=== PATIENT | male | born 1980 | race Caucasian/White ===

== ENCOUNTER 2019-07-20 11:29 | Emergency (ER) | payer OTHER, SELFPAY ==
[2019-07-20 11:36] VITALS: BP 154/107; PULSE 85; RESP 14; TEMP 36.9; O2SAT 99
--- NOTE | 2019-07-20 11:44 | ED.GENADULT ---
HPI - General Adult General Chief complaint: Upper Respiratory Infection Stated complaint: sinus Time Seen by Provider: 07/20/19 11:44 Source: patient Mode of arrival: ambulatory Limitations: no limitations History of Present Illness HPI narrative: 39-year-old male patient presents to the [facility] with complaints of cold symptoms for the past 4 to 5 days. Patient states he has had a cough and has been coughing up some brown sputum in the morning recently. Patient states he is an active smoker. Patient denies getting a flu shot this year. Patient denies any fevers but states he has had a little bit of a stuffy nose recently. Denies sore throat, chest pain, shortness of breath, abdominal pain, nausea, vomiting or diarrhea. Patient states he has been taking DayQuil and NyQuil for his symptoms. Related Data Home Medications Medication Instructions Recorded Confirmed omega 1-ddv-mln-fish oil [Fish Oil] 2 cap PO DAILY 07/20/19 07/20/19 omeprazole 20 mg PO DAILY 07/20/19 07/20/19 Allergies Allergy/AdvReac Type Severity Reaction Status Date / Time No Known Allergies Allergy Verified 07/20/19 11:45 Review of Systems Review of Systems: Narrative: CONSTITUTIONAL: Denies fever, chills, or sweats. EYES: Denies visual changes, redness, or discharge. ENT: Positive rhinorrhea, congestion, denies sore throat, or otalgia. CARDIOVASCULAR: Denies chest pain, palpitations, or edema. RESPIRATORY: Positive cough denies dyspnea. GASTROINTESTINAL: Denies abdominal pain, nausea, vomiting, or diarrhea. GENITOURINARY: Denies dysuria or hematuria. SKIN: Denies rash or itching. MUSCULOSKELETAL: Denies back pain, joint pain, or myalgia. NEUROLOGIC: Denies headache, numbness, or weakness. PSYCHIATRIC: Denies anxiety or depression. PMFSH Comments At the time of my signature I agree with nursing past medical history, surgical, social, and family history. There is no relevant family history pertinent to the presenting complaint. Exam Narrative: Exam Narrative: GENERAL: Well-appearing, well-nourished, and in no acute distress. HEAD: Normocephalic, atraumatic. No tenderness noted to frontal maxillary sinuses on palpation EYES: PERRLA and EOMI. ENT: Nares with slight erythema noted to the left nare, no rhinorrhea or epistaxis. Mucous membranes moist. Posterior pharynx with no erythema, tonsil enlargement, exudates or lesions present. Bilateral TMs are clear with no erythema or foreign bodies in the canal. NECK: Supple. No lymphadenopathy CHEST: Clear to auscultation. No respiratory distress. HEART: Regular rate and rhythm. No murmur heard. Normal peripheral pulses. ABDOMEN: Soft, nontender, nondistended, normal active bowel sounds. EXTREMITIES: Normal range of motion. No edema. SKIN: Warm, dry, no rash. NEURO: No focal deficits. Alert and oriented x3. Course Vital Signs Vital signs: Vital Signs Temperature 36.9 C 07/20/19 11:36 Pulse Rate 85 07/20/19 11:36 Respiratory Rate 14 07/20/19 11:36 Blood Pressure 154/107 H 07/20/19 11:36 Pulse Oximetry 99 07/20/19 11:36 Temperature 36.9 C 07/20/19 11:36 Pulse Rate 85 07/20/19 11:36 Respiratory Rate 14 07/20/19 11:36 Blood Pressure 154/107 H 07/20/19 11:36 Pulse Oximetry 99 07/20/19 11:36 Vital signs reviewed. Medical Decision Making Differential Diagnosis Differential Diagnosis: Differential diagnosis: Allergic rhinitis, chronic sinusitis, tonsillitis, acute sinusitis, infectious mononucleosis, seasonal influenza, pertussis, diphtheria, meningococcal disease, viral syndrome, viral bronchitis, RSV. Discussed with patient this is most likely a virus or possibly due to sinus drainage causing the symptoms. Highly recommended to patient that he quit smoking and discussed with him he can try taking a 24-hour antihistamine and a Flonase to help with his symptoms. Patient verbalized understanding denies any other questions or concerns at this time. Discussed with
== END 2019-07-20 12:00 | disposition home or self-care (01) ==
PROVIDERS: Emergency Provider Nurse Practitioner Family
DX: J06.9 Acute upper respiratory infection, unspecified (principal); R05 Cough; E78.00 Pure hypercholesterolemia, unspecified; I10 Essential (primary) hypertension; K21.9 Gastro-esophageal reflux disease without esophagitis
CPT/HCPCS: 99201; G0463